=== PATIENT | male | born 1990 | race Caucasian/White ===

== ENCOUNTER 2020-09-12 16:12 | Inpatient (IN) | payer BC ==
[~2020-09-12] VITALS: Ht 172.7 cm; Wt 106.6 kg
[2020-09-12 16:35] LABS: ABSOLUTE NEUTROPHILS 11.2 thou/uL (1.4-8.2); BASOPHILS 0.9 % (0.0-2.0); EOSINOPHILS 0.8 % (0.0-3.0); HEMATOCRIT 44.9 % (42.0-52.0); HEMOGLOBIN 14.9 gm/dL (14.0-18.0); LYMPHOCYTES 9.6 % (24.0-44.0); MCH 28.1 pg (26.0-34.0); MCHC 33.3 g/dL (28.0-37.0); MCV 84.4 fL (80.0-100.0); MONOCYTES 5.1 % (1.0-8.0); PLATELET COUNT 269 thou/uL (150-400); POLYS 83.6 % (36.0-66.0); RBC 5.31 mil/uL (4.50-6.00); RDW 13.6 % (10.5-14.5); WBC 13.4 thou/uL (4.0-11.0)
[2020-09-12 16:43] LABS: ANION GAP 8 mmol/L (7-16); BUN 10 mg/dL (7-18); CALCIUM 8.9 mg/dL (8.5-10.1); CHLORIDE 100 mmol/L (98-107); CO2 28 mmol/L (21-32); CREATININE 1.4 mg/dL (0.7-1.3); GLUCOSE 121 mg/dL (74-106); POTASSIUM 3.9 mmol/L (3.5-5.1); SODIUM 136 mmol/L (136-145)
[2020-09-12 16:52] LABS: ALBUMIN 2.9 g/dL (3.4-5.0); SGOT 10 U/L (15-37); SGPT 12 U/L (30-65); TOTAL BILIRUBIN 0.8 mg/dL (0.2-1.0); TOTAL PROTEIN 7.4 g/dL (6.4-8.2); TROPONIN-I <0.06 ng/mL (<0.06)
[2020-09-12 17:27] LABS: URINE BILIRUBIN NEGATIVE (Negative); URINE BLOOD NEGATIVE (Negative); URINE CLARITY CLEAR; URINE COLOR YELLOW; URINE GLUCOSE-RANDOM* NEGATIVE (Negative); URINE KETONES NEGATIVE (Negative); URINE LEUKOCYTES-REFLEX NEGATIVE (Negative); URINE NITRITE-REFLEX NEGATIVE (Negative); URINE PROTEIN (DIPSTICK) NEGATIVE (Negative); URINE SPECIFIC GRAVITY <= 1.005 (1.005-1.035); URINE UROBILINOGEN 0.2 E.U./dl (0.2-1.0)
[2020-09-12 17:37] LABS: AMP/METHAMP Negative (Negative); BARBITURATES Negative (Negative); BENZODIAZEPINES Negative (Negative); COCAINE Negative (Negative); METHADONE Negative (Negative); OPIATES Negative (Negative); PCP Negative (Negative)
[2020-09-12 20:23] VITALS: BP 130/70
--- NOTE | 2020-09-12 20:24 | NUR ---
HAND OFF TOOL SENT
[2020-09-12 20:34] VITALS: BP 107/80
[2020-09-12 21:00] VITALS: BP 128/83
[2020-09-12 21:15] VITALS: BP 128/83
[2020-09-12 23:30] VITALS: BP 113/79
[2020-09-13] VITALS (10 sets, daily range): BP systolic 95–161; BP diastolic 55–95
--- NOTE | 2020-09-13 03:50 | NUR ---
PT ADMITTED TO ROOM 201 AROUND 2100, PT IS AWAKE, ALERT AND ORIENTEDX4, ADMISSION ASSESSMENT, EDUCATION AND HX COMPLETED, ST ON THE MONITOR, HR IN LOW 100, REMAINS ON CARDIZEM GTT, CARDIZEM GTT TITRATED TO 5ML/HR, HR AND BP REMAINS STABLE, ASSESSMENTS CHARTED, REMAINS NPO AFTER MIDNIGHT, DENIES PAIN OR SOB, NO NEEDS AT THIS TIME, WILL CONTINUE TO MONITOR AND FOLLOW POC
[2020-09-13 05:23] LABS: HEMATOCRIT 44.3 % (42.0-52.0); HEMOGLOBIN 14.7 gm/dL (14.0-18.0); MCH 28.7 pg (26.0-34.0); MCHC 33.1 g/dL (28.0-37.0); MCV 86.8 fL (80.0-100.0); RBC 5.11 mil/uL (4.50-6.00); RDW 13.7 % (10.5-14.5)
[2020-09-13 05:31] LABS: TROPONIN-I <0.06 ng/mL (<0.06)
[2020-09-13 05:35] LABS: CALCIUM 8.7 mg/dL (8.5-10.1); CREATININE 1.1 mg/dL (0.7-1.3); POTASSIUM 3.9 mmol/L (3.5-5.1); URIC ACID* 7.4 mg/dL (3.5-7.2)
--- NOTE | 2020-09-13 09:08 | EKG ---
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
[2020-09-13 11:07] LABS: IgA 310 mg/dL (90-386); IgG 1066 mg/dL (603-1613); IgM 72 mg/dL (20-172)
[2020-09-13 11:09] LABS: INR 1.2; PROTIME 12.6 Seconds (9.3-11.4)
--- NOTE | 2020-09-13 14:34 | NUR ---
Assess due to high nutrition screening risk. Admit with afib, lung mass, suspicious for lymphoma. S/P biopsy. Pt reports appetite down but just for few days. He verbalized he thought he weighed around 260 lb but states does not ever weigh himself. Current wt 231 lb. Has menu and able to order own food choices for a regular diet. Voiced no questions. Maintained on IVF for now. Low risk but continue to follow.
--- NOTE | 2020-09-13 18:24 | NUR ---
ASSUMED CARE SHIFT CHANGE. ASSESSSMENTS CHARTED.MEDS GIVEN. VSS. C/O PAIN IN CHEST MANAGED WITH PO AND IV PAIN MEDS. HR BETTER CONTROLLED, DILT GTT CONTINUES. CT SCAN COMPLETE, BIOPSY TAKEN-REFER TO RESULTS. FATHER AT BEDSIDE THROUGHOUT SHIFT. PT CURRENTLY SITTING UP IN BED DENYING NEEDS. CONTINUING POC. WILL PASS ON REPORT TO JIGAR RN.
[2020-09-14] VITALS (7 sets, daily range): BP systolic 89–138; BP diastolic 66–96
[2020-09-14 05:06] LABS: HEMATOCRIT 43.1 % (42.0-52.0); HEMOGLOBIN 14.3 gm/dL (14.0-18.0); MCH 28.2 pg (26.0-34.0); MCHC 33.2 g/dL (28.0-37.0); MCV 84.8 fL (80.0-100.0); RBC 5.08 mil/uL (4.50-6.00); RDW 13.7 % (10.5-14.5)
[2020-09-14 05:07] LABS: HAV IgM AB (ANTI-HAV IgM) Negative (Negative); HEPATITIS B SURFACE AG Negative (Negative); HEPATITIS C VIRUS AB <0.1 (0.0-0.9)
[2020-09-14 05:12] LABS: CALCIUM 8.3 mg/dL (8.5-10.1); POTASSIUM 4.2 mmol/L (3.5-5.1)
--- NOTE | 2020-09-14 07:12 | NUR ---
HR BACK TO AFIB AND CARDIZEM TITRATED UP TO 20MG/HR WITH SUSTAINED HR 130 TO 140 AND INCRAEASES TO 150'S WHEN UP TO BR, BP REMAINED STABLE, PRN PAIN MED GIVEN FOR NON CARDIAC CHEST PAIN AND KNEE PAIN, PHYSCICIAN NOTIFIED OF SUSTAIN ED HR INSTRUCTED TO CON'T TO MONITOR, AT 0410 BP DROPPED TO 89/66 AND HR 95 SINUS RHYTHM CARDIZEM HELD AND BP CHECKED AT 0430 @ 120/72 HR REMAINS SR - ST IN LOW 100'S, PT C/O NAUSEA THIS AM AND PRN ZOFRAN GIVEN STATES HE USUALLY TAKES TUMS AT HOME, WILL CON'T TO MONITOR PER PPOC.
--- NOTE | 2020-09-14 12:36 | 2DMMODE ---
[facility] [place] [address] 2 D/M-MODE ECHOCARDIOGRAM Name: STEFFANIE CORREA Room #: 201-P ADM IN M.R.#: [id number] Admission: 09/12/20 Attend Phys: Pako Guo MD Discharge: Date of : 89 Report #: [id number] THIS REPORT FOR: cc: FAM - No family physician/PCP FAM - No family physician/PCP Arturo Finley MD ~ APPROVED REPORT Study performed: 09/14/2020 08:39:51 EXAM: Comprehensive 2D, Doppler, and color-flow Echocardiogram Patient Location: Bedside Room #: 201 Status: on-call BSA: 2.17 HR: 110 bpm BP: 123/87 mmHg Rhythm: Tachycardia Other Information Study Quality: Poor/images on right side of chest/no apicals/limited exam. Indications Afib RVR, lung mass. Echo Enhancing Agent Indication: Rule out Shunt Agent(s) / Amount(s) Used: Agitated Saline 7 cc 2D Dimensions IVSd: 9.65 (7-11mm) LVOT Diam: 21.08 (18-24mm) LVDd: 38.44 mm PWd: 10.04 (7-11mm) LVDs: 25.07 (25-40mm) Aortic Root: 32.52 mm Aortic Valve AoV Peak Radhames.: 1.21 m/s AO Peak Gr.: 5.82 mmHg Pulmonary Valve PV Peak Radhames.: 1.22 m/s PV Peak Gr.: 5.99 mmHg [facility] [address] [address] 2 D/M-MODE ECHOCARDIOGRAM Name: STEFFANIE CORREA Room #: 201-P ADM IN M.R.#: [id number] Admission: 09/12/20 Attend Phys: Pako Guo MD Discharge: Date of : 89 Report #: [id number] Left Ventricle The left ventricle is normal size. There is normal LV segmental wall motion. There is normal left ventricular wall thickness. Left ventricular systolic function is normal. LVEF is 60-65%. Right Ventricle The right ventricle is normal size. The right ventricular systolic function is normal. Atria The left atrium size is normal. Suboptimal and undiagnostic bubble study for shunt. The right atrium size is normal. Aortic Valve The aortic valve is normal in structure. No aortic regurgitation is present. There is no aortic valvular stenosis. Mitral Valve The mitral valve is normal in structure. There is no mitral valve regurgitation noted. No evidence of mitral valve stenosis. Tricuspid Valve The tricuspid valve is normal in structure. There is no tricuspid valve regurgitation noted. Pulmonic Valve Pulmonic valve is not well visualized. Great Vessels The aortic root is normal in size. IVC is not well visualized. Pericardium Circumferential pericardial effusion without echocardiographic evidence of tamponade. Left and right pleural effusions noted. <Conclusion> The left ventricle is normal size. Left ventricular systolic function is normal. LVEF is 60-65%. The aortic valve is normal in structure. The aortic valve is normal in structure. The mitral valve is normal in structure. The tricuspid valve is normal in structure. Pulmonic valve is not well visualized. [facility] [address] [place] [address] 2 D/M-MODE ECHOCARDIOGRAM Name: STEFFANIE CORREA Room #: 201-P ADM IN M.R.#: [id number] Admission: 09/12/20 Attend Phys: Pako Guo MD Discharge: Date of : 89 Report #: [id number] The aortic root is normal in size. Circumferential pericardial effusion without echocardiographic evidence of tamponade. Left and right pleural effusions noted. <ELECTRONICALLY SIGNED> By: Arturo Finley MD 09/14/20 1236 1236 1236 Arturo Finley MD /INF
--- NOTE | 2020-09-14 18:12 | NUR ---
ASSESSMENT CHARTED. PT ALERT AND ORIENTED. PRN PAIN MED GIVEN WITH PARTIAL RELIEF. SR/ST ON TELE. NO CONCERNS AT THIS TIME.
--- NOTE | 2020-09-15 04:19 | NUR ---
PTS HR WENT BACK INTO AFIB RVR WITH RATE 140 TO 150 SUSTAINED VERAPIMILE GIVEN EARLY VSS, PRN PAIN MED GIVEN FOR BACK PAIN, HR CONVERTED BACK TO SINUS TACH AT 1045, PT RESTING QUIETLY IN ROOM UNTIL 0200 HE CALLED OUT THAT HE WAS NAUSEATED AND VOMITING, PRN ZOFRAN GIVEN AND NOW SLEEPING, WILL CON'T TO MONITOR PER PPOC.
[2020-09-15 04:43] VITALS: BP 129/74
[2020-09-15 07:46] VITALS: BP 124/82
[2020-09-15 11:31] VITALS: BP 121/70
[2020-09-15 16:52] VITALS: BP 108/74
--- NOTE | 2020-09-15 18:35 | NUR ---
RECEIVED PT'S CARE AROUND 0720; PT. RESTING WITH EYES CLOSED; EQUAL CHEST RISING NOTICED; ST ON THE MONITOR; DURING AM ASSESSMENT PT. AOX4; C/O BACK PAIN 09/04; REFUSED PRN PAIN MEDICATION; EDUCATED ABOUT PAIN MANAGEMENT; ST. UNDERSTANDING; PHYSICIAN AND PATTERNMAKER APPRENTICE WOOD NOTIFIED ABOUT ELEVATED HR DURING THE NIGHT; ORDERS ON PLACED; DURING THE EARLY AFTERNOON PT'S HR ELEVATED; 140-190s; AFIB; PT. RESTING ON SIDE OF THE BED; C/O SOB; "HOT FLUSHES"; PHYSICIAN NOTIFIED; ORDERS RECEIVED; REASSESSMENT PT. HR ON THE 110s; DURING THE EVENING HR BELOW 100s; MONITORING; SR; URINE SAMPLE SENT; ASSESSMENT CHARGED; FOLLOWING POC; WILL PASS ON REPORT;
[2020-09-15 19:43] VITALS: BP 113/68
[2020-09-16 03:33] VITALS: BP 103/53
[2020-09-16 03:45] LABS: HEMATOCRIT 40.8 % (42.0-52.0); HEMOGLOBIN 13.5 gm/dL (14.0-18.0); MCH 27.9 pg (26.0-34.0); MCHC 33.2 g/dL (28.0-37.0); RBC 4.85 mil/uL (4.50-6.00); RDW 13.5 % (10.5-14.5); WBC 14.9 thou/uL (4.0-11.0)
[2020-09-16 04:00] LABS: CALCIUM 8.7 mg/dL (8.5-10.1); CREATININE 0.9 mg/dL (0.7-1.3)
--- NOTE | 2020-09-16 06:37 | NUR ---
ASSUMED CARE AT CHANGE OF SHIFT, AWAKE, ALERT AND ORIENTED, DENIES PAIN OR SOB, SR ON TELE, NO AFIB NOTED TONIGHT, HR WELL CONTROLLED IN THE 80S AND 90S, ASSESSMENTS CHARTED, NO ACUTE DISTRESS NOTED, NO NEEDS AT THIS TIME, WILL PASS ON REPORT
[2020-09-16 07:21] VITALS: BP 107/61
[2020-09-16 07:30] VITALS: BP 101/61
[2020-09-16 09:06] LABS: ANA INTERPRETATION Negative (Negative)
[2020-09-16] MEDS ORDERED: IBUPROFEN 800800 M1 PO (09:57)
[2020-09-16] MEDS ORDERED: ALLOPURINOL 30300 M1 PO (09:57)
[2020-09-16] MEDS ORDERED: VERAPAMIL SR 1120 MG PO (09:57)
[2020-09-16] MEDS ORDERED: AUGMENTIN 875-1 EACH PO (11:02)
[2020-09-16 11:07] LABS: KAPPA FREE LIGHT CHAINS 21.3 mg/L (3.3-19.4); KAPPA/LAMBDA RATIO 1.01 (0.26-1.65); LAMBDA FREE LIGHT CHAINS 21.1 mg/L (5.7-26.3)
[2020-09-16 11:08] VITALS: BP 106/65
--- NOTE | 2020-09-16 11:44 | NUR ---
RECEIVED PT'S CARE AROUND 0720; PT. ON BED; ALERT; HR 150s; PT. ST. FEELING SOME PALPITATIONS; C/O BACK PAIN; 08/07; REFUSED PRN PAIN MEDICATION; AM MEDICATION GIVEN EARLIER; MONITORING; SR ON THE MONITOR LATER ON THE DAY; D/C ORDERS ON PLACED; NO ANTIBIOTICS RX; NOTICED ELEVATED WBC AND HX OF ELEVATED TEMPERATURE TWO NIGHTS AGO; DR. SIMEON NOTIFIED; ORDERS ON PLACED; RECEIVED CALL FROM VEGETABLES COOK PT MOTHER AT THE FRONT ENTRANCE; PT'S MOTHER REQUESTED TO SWITCH VISITOR TO MOTHER IN STEP OF FATHER; EXPLAINED PER POLICY SWITCHES ARE NOT ALLOW; NOTIFIED D/C ORDERS ON PLACED; EXPLAINED ABOUT D/C PROCESS; PT. NOTIFIED ABOUT MOTHER REQUESTED; PER PT. AWARE OF PER POLICY NOT ABLE TO CHANGE DESIGNATOR VISITOR; CENTER MEDICAL SPECIALIST [facility]. CONTRER[facility]; NOTIFIED ABOUT D/C PROCESS; STEsa CONTRERAS; SR ON THE MONITOR; ASSESSMENT CHARGED; FOLLOWING POC; WILL WORK ON D/C ORDERS;
[2020-09-16 11:54] VITALS: BP 106/65
[2020-09-16 15:07] LABS: GLOBULIN TOTAL 3.7 g/dL (2.2-3.9); M-SPIKE Not Observed g/dL (Not Observed)
--- NOTE | 2020-09-17 10:07 | PATH ---
[facility] [address] [place] [address] PATHOLOGY RPT PROCEDURE Name: STEFFANIE CORREA Room #: 201-P DIS IN M.R.#: [id number] Admission: 09/12/20 Date of : [birth year] Discharge: 09/16/20 Report #: [id number] Path Case #: [id number] [facility] Accession Number: [id number] . 01 Material submitted: . lung - LEFT LUNG MASS. Modifiers: left . 02 Diagnosis: Lung, left lung mass, needle core biopsy: - Moderate dense chronic inflammation along with scattered rare giant cells as well as hyalinized stroma. - Negative for malignancy. . (IUV:mml; 09/16/2020) QLM 09/16/2020 1104 Local . 02 Comment: Examination shows hyalinized fibrous needle core biopsy tissue of lung associated with dense chronic inflammation as well as an occasional giant cell. Well-developed granulomata are not identified. Properly-controlled immunohistochemical stains are performed on block A1 and included CD68 as well as AE1/AE3. There is no reactivity identified within AE1/AE3. Rare reactive cells are identified with CD68. In addition, properly controlled Acid fast bacillus and Gomori methenamine silver stains performed on A1 are negative for mycobacterial as well as fungal elements, respectively. . (IUV:mml; 09/16/2020) . 02 Electronically signed: . Tracy Wilkerson MD, Pathologist NPI- [id number] . 01 Gross description: . The specimen is received in formalin, labeled "Steffanie Correa, left lung biopsy". Received are three needle cores of pale ford tissue ranging in length from 0.7-1.2 cm in length, with each measuring 0.1 cm in diameter. The specimen is submitted entirely in cassettes A1 through A3. A portion of the specimen is received in RPMI solution and is forwarded to an outside laboratory for flow cytometry studies. (CAA; 09/13/2020) QAC/QAC 09/13/2020 1554 Local . 02 Pathologist provided ICD-10: J98.4 . 02 CPT . 927891, Z31723, Y90110, 164404, [id number] [place] [address] PATHOLOGY RPT PROCEDURE Name: STEFFANIE CORREA Room #: 201-P DIS IN M.R.#: [id number] Admission: 09/12/20 Date of : [birth year] Discharge: 09/16/20 Report #: [id number] Path Case #: [id number] Specimen Comment: A courtesy copy of this report has been sent to [phone] Specimen Comment: Report sent to Performed at: [address], [place] [id number] MD Butch Bruno MD Phone: [phone] Performed at: [address] [id number] MD Tracy Wilkerson MD Phone: [phone]
== END 2020-09-16 13:16 | disposition home or self-care (01) | DRG 309 ==
LOC: ER 16:12 → 2N 19:28 → EROBS 19:28 → 2N 20:44
PROVIDERS: Internal Medicine Hematology & Oncology; Internal Medicine Pulmonary Disease; Nurse Practitioner Acute Care; Physician Assistant; Radiology Diagnostic Radiology; ADMIT Hospitalist; ATTEND Hospitalist
PROC: 0B9L3ZX Drainage of Left Lung, Percutaneous Approach, Diagnostic (ICD-10-PCS; principal; 2020-09-13)
DX: I48.20 Chronic atrial fibrillation, unspecified (principal); N17.9 Acute kidney failure, unspecified; C85.90 Non-Hodgkin lymphoma, unspecified, unspecified site; J90 Pleural effusion, not elsewhere classified; R91.8 Other nonspecific abnormal finding of lung field; R93.89 Abnormal findings on diagnostic imaging of other specified body structures; D72.829 Elevated white blood cell count, unspecified; I48.0 Paroxysmal atrial fibrillation; Z85.46 Personal history of malignant neoplasm of prostate; Z72.89 Other problems related to lifestyle
CPT/HCPCS: 10081

== ENCOUNTER → 2020-09-25 | Outpatient (CLI) | payer BC ==
[~2020-09-25] MED LIST: ALLOPURINOL 30300 M1 PO; AUGMENTIN 875-1 EACH PO; IBUPROFEN 800800 M1 PO; VERAPAMIL HCL120 MG PO; VERAPAMIL SR 1120 MG PO
--- NOTE | 2020-09-30 15:07 | PATH ---
[facility] [address] [place] [address] PATHOLOGY RPT PROCEDURE Name: STEFFANIE CORREA Room #: REG VIVIANA Carl.#: [id number] Admission: 09/25/20 Date of : [birth year] Discharge: Report #: [id number] Path Case #: [id number] Note [facility] Accession Number: [id number] TESTS RESULT FLAG UNITS REF RANGE LAB Clinician Provided Cytology Information No. of containers..01 Other (Miscellaneous) Source: LMS FNA DIAGNOSIS: LMS FNA NEGATIVE FOR MALIGNANT EPITHELIAL CELLS. REACTIVE BRONCHIAL CELLS ARE PRESENT. RED BLOOD CELLS ARE PRESENT. THIS INTERPRETATION INCLUDES EVALUATION OF A CELL BLOCK. Pathologist ICD10: 02 R91.8 Signed out by: 02 Tracy Wilkerson MD, Pathologist NPI- [id number] Performed by: Dionicio Raman, Donor Center Technician ([facility]) Gross description: 01 20ML, RED, 2FX /LCS 09/27/2020 0700 Local FLAG LEGEND: L-Low Normal,H-High Normal,LL-Alert Low,HH-Alert High <-Panic Low,>-Panic High,A-Abnormal,AA-Critical Abnormal Performed at: [address] [place] [address] Butch Bruno MD, [address] [address] Tracy Wilkerson MD, Specimen Comment: A courtesy copy of this report has been sent to [phone] Specimen Comment: Report sent to Specimen Comment: A duplicate report has been generated due to demographic updates. Performed at: [address], [place], [place] [id number] MD Butch Bruno MD Phone: [phone]
== END ==
LOC: LAB 13:41
PROVIDERS: ATTEND Pediatrics
DX: Z20.822 Contact with and (suspected) exposure to COVID-19 (principal)

== ENCOUNTER → 2020-09-26 | Outpatient (CLI) | payer BC ==
[~2020-09-26] VITALS: Ht 172.7 cm; Wt 100.2 kg
[2020-09-26 10:00] VITALS: BP 114/78
== END | disposition home or self-care (01) ==
LOC: OR 08:47
PROVIDERS: ATTEND Pediatrics
DX: R91.8 Other nonspecific abnormal finding of lung field (principal); I48.91 Unspecified atrial fibrillation; K21.9 Gastro-esophageal reflux disease without esophagitis; Z98.890 Other specified postprocedural states; Z79.899 Other long term (current) drug therapy; Z79.01 Long term (current) use of anticoagulants
CPT/HCPCS: 62110; 62900; 70005

== ENCOUNTER 2020-10-12 18:33 | Inpatient (IN) | payer BC ==
[~2020-10-12] VITALS: Ht 172.7 cm; Wt 95.3 kg
[2020-10-12 18:36] VITALS: BP 151/76
[2020-10-12 18:48] LABS: HEMATOCRIT 45.3 % (42.0-52.0); HEMOGLOBIN 15.3 gm/dL (14.0-18.0); MCH 28.3 pg (26.0-34.0); MCHC 33.9 g/dL (28.0-37.0); MCV 83.6 fL (80.0-100.0); PLATELET COUNT 413 thou/uL (150-400); RBC 5.42 mil/uL (4.50-6.00); RDW 14.9 % (10.5-14.5); WBC 20.5 thou/uL (4.0-11.0)
[2020-10-12 18:58] LABS: CALCIUM 9.3 mg/dL (8.5-10.1); CREATININE 1.4 mg/dL (0.7-1.3); POTASSIUM 3.9 mmol/L (3.5-5.1)
[2020-10-12 19:03] LABS: ALBUMIN 3.1 g/dL (3.4-5.0); DIRECT BILIRUBIN 0.2 mg/dL (<0.1-0.2); TOTAL BILIRUBIN 0.7 mg/dL (0.2-1.0); TOTAL PROTEIN 7.9 g/dL (6.4-8.2)
[2020-10-12 19:04] LABS: APTT 28.3 Seconds (24.5-32.8); INR 1.2
[2020-10-12 19:23] LABS: ABSOLUTE NEUTROPHILS 15.4 thou/uL (1.4-8.2)
[2020-10-12 21:06] VITALS: BP 118/79
[2020-10-12 21:38] VITALS: BP 110/74
[2020-10-12 22:00] VITALS: BP 119/86
[2020-10-12 22:20] VITALS: BP 114/78
[2020-10-12 23:30] VITALS: BP 103/56
[2020-10-13] VITALS (13 sets, daily range): BP systolic 98–125; BP diastolic 44–80
[2020-10-13 05:09] LABS: ABSOLUTE NEUTROPHILS 9.1 thou/uL (1.4-8.2); BASOPHILS 0.5 % (0.0-2.0); EOSINOPHILS 2.5 % (0.0-3.0); HEMATOCRIT 41.5 % (42.0-52.0); HEMOGLOBIN 13.9 gm/dL (14.0-18.0); LYMPHOCYTES 16.1 % (24.0-44.0); MCH 28.6 pg (26.0-34.0); MCHC 33.5 g/dL (28.0-37.0); MCV 85.4 fL (80.0-100.0); MONOCYTES 5.8 % (1.0-8.0); PLATELET COUNT 291 thou/uL (150-400); POLYS 75.1 % (36.0-66.0); RBC 4.87 mil/uL (4.50-6.00); WBC 12.2 thou/uL (4.0-11.0)
[2020-10-13 05:19] LABS: ALBUMIN 2.2 g/dL (3.4-5.0); CALCIUM 8.4 mg/dL (8.5-10.1); TOTAL BILIRUBIN 0.6 mg/dL (0.2-1.0); TOTAL PROTEIN 6.2 g/dL (6.4-8.2)
[2020-10-14] VITALS (29 sets, daily range): BP systolic 99–123; BP diastolic 56–80
--- NOTE | 2020-10-14 09:21 | HC ---
[facility] [place] [address] CONSULTATION Name: STEFFANIE CORREA Room #: 200-I ADM IN M.R.#: [id number] Admission: 10/12/20 Attend Phys: Caryn Johnson Discharge: Date of : 89 Report #: [id number] THIS REPORT FOR: cc: SAW - Fidelina family physician/PCP SAW - No family physician/PCP Alex Peace MD ~ DATE OF SERVICE: 10/13/2020 CARDIOLOGY CONSULTATION INDICATION: Palpitations. HISTORY OF PRESENT ILLNESS: This is a 30-year-old gentleman with a recent history of left lung mass and atrial fibrillation, presenting with recurrent palpitations. He was recently hospitalized for palpitations, diagnosed with atrial fibrillation. His rhythm remained stable on verapamil. In regards to his left lung mass, he did undergo two biopsies, no definitive diagnosis. He is scheduled to have a PET scan and followup with CT surgery. The patient woke up with sudden onset of palpitations, which increased in the rate. He came to the ER, diagnosed with an SVT at 212 beats per minute, converted with IV adenosine. On telemetry, he did have recurrent episodes of atrial fibrillation, converted back to sinus rhythm. The patient denies any recent fever, chills, nausea, or diarrhea. Over the past several months, he has had increased dyspnea with walking attributed to his left lung mass. PAST MEDICAL HISTORY: Atrial fibrillation, diagnosed in 08/2020, echo revealed normal LV systolic function. Left lung mass, currently undergoing evaluation. ALLERGIES: None. MEDICATIONS: At home include verapamil 120 mg b.i.d. SOCIAL HISTORY: Denies tobacco use. FAMILY HISTORY: Negative for premature CAD. REVIEW OF SYSTEMS: A full 10-point review of systems performed. Only the pertinent positives and negatives are described in the HPI. PHYSICAL EXAMINATION: VITAL SIGNS: Blood pressure is 118/70, heart rate is 90 beats per minute. GENERAL APPEARANCE: This is a well-developed, well-nourished male in no acute distress. HEENT: Normocephalic, atraumatic. NECK: Supple. [facility] [address] [place] [address] CONSULTATION Name: STEFFANIE CORREA Room #: 200-I ADM IN .R.#: [id number] Admission: 10/12/20 Attend Phys: Caryn Johnson Discharge: Date of : [birth year] Report #: [id number] LUNGS: Diminished breath sounds at the left side. CARDIAC: Regular rate and rhythm, S1, S2 positive. ABDOMEN: Soft, nontender. EXTREMITIES: No edema, no cyanosis. ECG #1 reveals SVT at 212 beats per minute. ECG #2 reveals sinus tachycardia. LABORATORY VALUES: White count is 12.2, hemoglobin is 13.9, creatinine is 1.0. ASSESSMENT AND PLAN: 1. Supraventricular tachycardia, converted with IV adenosine. Had been on verapamil, consider switching over to a beta soham. 2. Paroxysmal atrial fibrillation, remains in sinus rhythm at this time. Consider adding an antiarrhythmic. On his previous admission when he was diagnosed with atrial fibrillation, anticoagulation was not started due to low risk profile and ongoing evaluation for his left lung mass. Start aspirin therapy. 3. Left lung mass, continue evaluation for diagnosis. <ELECTRONICALLY SIGNED> By: Alex Peace MD 10/14/20 0921 1104 1841 Alex Peace MD /nt
--- NOTE | 2020-10-14 09:29 | EKG ---
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 MCARTHUR : 1990 Requested By: Yuridia Pinto Order Number: [id number] MD: Stan Singletary Measurements Intervals [place] Rate: 213 P: 0 MA: 106 QRS: 40 QRSD: 80 T: 30 QT: 237 QTc: 446 Interpretive Statements Supraventricular tachycardia RSR' in V1 or V2, probably normal variant Compared to ECG 09/12/2020 17:16:54 PSVT has replaced atrial fibrillation Electronically Signed On 10-14-2020 9:28:49 CDT by Stan Singletary [email or web address] <ELECTRONICALLY SIGNED> By: Stan Singletary MD, [facility] 10/14/20 0928 41 41 Stan Singletary MD, [facility] /EPI
--- NOTE | 2020-10-14 09:32 | 2DMMODE ---
[address] [address] 2 D/M-MODE ECHOCARDIOGRAM Name: STEFFANIE CORREA Room #: 200-I ADM IN M.R.#: [id number] Admission: 10/12/20 Attend Phys: Caryn Aguilar [place] Discharge: Date of : [birth year] Report #: [id number] THIS REPORT FOR: cc: FAM - No family physician/PCP FAM - No family physician/PCP Alex Peace MD ~ APPROVED REPORT Study performed: 10/14/2020 07:41:11 EXAM: Comprehensive 2D, Doppler, and color-flow Echocardiogram Patient Location: Bedside Room #: 200 Status: routine BSA: 2.13 HR: 90 bpm BP: 117/75 mmHg Rhythm: Tachycardia Other Information Study Quality: Technically Limited Technically limited study due to Limithed imaging windows. Indications Atrial Fibrillation Pericardial Effusion Left Ventricle The left ventricle is normal size. There is normal LV segmental wall motion. There is normal left ventricular wall thickness. The left ventricular systolic function is normal. The left ventricular ejection fraction is within the normal range. LVEF is 55-60%. This study is not technically sufficient to allow evaluation of the LV diastolic function. Right Ventricle The right ventricle is normal size. The right ventricular systolic function is normal. Atria The left atrium size is normal. The right atrium size is normal. [address] [address] 2 D/M-MODE ECHOCARDIOGRAM Name: STEFFANIE CORREA Room #: 200-I ADM IN M.R.#: [id number] Admission: 10/12/20 Attend Phys: Caryn Baez Discharge: Date of : [birth year] Report #: [id number] Aortic Valve The aortic valve is normal in structure. No aortic regurgitation is present. Mitral Valve The mitral valve is normal in structure. There is no mitral valve regurgitation noted. Tricuspid Valve The tricuspid valve is normal in structure. There is no tricuspid valve regurgitation noted. Pulmonic Valve Pulmonic valve is not well visualized. Great Vessels The aortic root is normal in size. The inferior vena cava is not well visualized. Pericardium Small pericardial effusion. <Conclusion> The left ventricle is normal size. There is normal left ventricular wall thickness. The left ventricular systolic function is normal. The right ventricle is normal size. The left atrium size is normal. The aortic valve is normal in structure. There is no mitral valve regurgitation noted. Small pericardial effusion. <ELECTRONICALLY SIGNED> By: Alex Peace MD 10/14/20930 0 0 Alex Peace MD /INF
[2020-10-15] VITALS (35 sets, daily range): BP systolic 94–124; BP diastolic 48–78
[2020-10-15 05:02] LABS: HEMATOCRIT 37.7 % (42.0-52.0); HEMOGLOBIN 12.6 gm/dL (14.0-18.0); MCHC 33.5 g/dL (28.0-37.0); MCV 83.7 fL (80.0-100.0); RBC 4.51 mil/uL (4.50-6.00); RDW 14.7 % (10.5-14.5); WBC 14.2 thou/uL (4.0-11.0)
[2020-10-15 05:39] LABS: CALCIUM 8.8 mg/dL (8.5-10.1); CREATININE 0.8 mg/dL (0.7-1.3); POTASSIUM 4.7 mmol/L (3.5-5.1)
--- NOTE | 2020-10-15 09:19 | EKG ---
[address] [place] [address] ELECTROCARDIOGRAM REPORT Name: SUNNYSTEFFANIESEBASTIAN BAIRD Room #: 249-P ADM IN M.R.#: [id number] Admission: 10/12/20 Attend Phys: Caryn Johnson Discharge: Date of : 89 Report #: [id number] 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: JCHAIREZ : 1990 Requested By: Caryn Johnson Order Number: [id number] MD: Stan Singletary Measurements Intervals [place] Rate: 108 P: 44 MI: 143 QRS: 35 QRSD: 87 T: 55 QT: 294 QTc: 394 Interpretive Statements Sinus tachycardia Otherwise normal tracing Compared to ECG 10/12/2020 18:42:10 Supraventricular tachycardia no longer present Electronically Signed On 10-15-2020 9:19:16 CDT by Stan Singletary [email or web address] <ELECTRONICALLY SIGNED> By: Stan Singletary MD, [facility] 10/15/20 0919 1857 56 Stan Singletary MD, FACC /EPI
--- NOTE | 2020-10-15 17:07 | PATH ---
[facility] [address] [place] [address] PATHOLOGY RPT PROCEDURE Name: STEFFANIE CORREA Room #: 249-P ADM IN M.R.#: [id number] Admission: 10/12/20 Date of : 89 Discharge: Report #: [id number] Path Case #: [id number] Note [facility] Accession Number: [id number] TESTS RESULT FLAG UNITS REF RANGE LAB Clinician Provided Cytology Information No. of containers..01 Other (Miscellaneous) Source: LEFT PLEURAL FLUID DIAGNOSIS: LEFT PLEURAL FLUID NEGATIVE FOR MALIGNANT EPITHELIAL CELLS. REACTIVE MESOTHELIAL CELLS ARE PRESENT. THIS INTERPRETATION INCLUDES EVALUATION OF A CELL BLOCK. SCANT CELLULARITY. RARE INFLAMMATORY CELLS AND MACROPHAGES. Pathologist ICD10: 02 J90 Signed out by: 02 Tracy Wilkerson MD, Pathologist NPI- [id number] Performed by: Dionicio Raman, Tablet Repair ([facility]) Gross description: 01 30ML, OXANA, 1TP 1CB /LCS 10/15/2020 0228 Local FLAG LEGEND: L-Low Normal,H-High Normal,LL-Alert Low,HH-Alert High <-Panic Low,>-Panic High,A-Abnormal,AA-Critical Abnormal Performed at: [address] [place] [address] Butch Bruno MD, [address] [address] Tracy Wilkerson MD, Performed at: [address], [place], [place] [id number] MD Butch Bruno MD Phone: [phone]
[2020-10-16] VITALS: BP 107/62
[2020-10-16 04:00] VITALS: BP 103/58
[2020-10-16 08:00] VITALS: BP 100/65
[2020-10-16 11:38] VITALS: BP 99/69
[2020-10-16 16:59] VITALS: BP 103/63
[2020-10-17] VITALS (7 sets, daily range): BP systolic 106–134; BP diastolic 61–90
[2020-10-17 05:30] LABS: HEMATOCRIT 35.9 % (42.0-52.0); HEMOGLOBIN 12.1 gm/dL (14.0-18.0); MCH 28.4 pg (26.0-34.0); MCHC 33.7 g/dL (28.0-37.0); MCV 84.4 fL (80.0-100.0); RBC 4.25 mil/uL (4.50-6.00); WBC 8.1 thou/uL (4.0-11.0)
[2020-10-17 05:34] LABS: CALCIUM 8.1 mg/dL (8.5-10.1); CREATININE 0.9 mg/dL (0.7-1.3); POTASSIUM 3.9 mmol/L (3.5-5.1)
[2020-10-18 03:16] LABS: HEMATOCRIT 39.5 % (42.0-52.0); HEMOGLOBIN 13.3 gm/dL (14.0-18.0); MCH 28.1 pg (26.0-34.0); MCHC 33.6 g/dL (28.0-37.0); MCV 83.8 fL (80.0-100.0); RBC 4.72 mil/uL (4.50-6.00); WBC 7.5 thou/uL (4.0-11.0)
[2020-10-18 03:23] LABS: CALCIUM 8.5 mg/dL (8.5-10.1); CREATININE 0.7 mg/dL (0.7-1.3); POTASSIUM 3.7 mmol/L (3.5-5.1)
[2020-10-18 03:51] VITALS: BP 128/80
[2020-10-18 08:10] VITALS: BP 126/86
[2020-10-18 11:54] VITALS: BP 135/79
[2020-10-18] MEDS ORDERED: METOPROLOL SUCC25 M1 PO (12:49)
[2020-10-18] MEDS ORDERED: BAYER CHEWABLE81 MG PO (12:49)
--- NOTE | 2020-10-18 12:59 | O ---
[facility] [place] [address] OPERATIVE REPORT Name: SUNNYSTEFFANIE BAIRD Room #: 204-P ADM IN M.R.#: [id number] Admission: 10/12/20 Attend Phys: Caryn Jeff Johnson Discharge: Date of : 89 Report #: [id number] THIS REPORT FOR: cc: SAW - No family physician/PCP FAM - No family physician/PCP Shamir Painting MD ~ DATE OF SERVICE: 10/14/2020 PREOPERATIVE DIAGNOSIS: Left chest mass. POSTOPERATIVE DIAGNOSIS: Left chest mass. OPERATION: Bronchoscopy, left anterior mediastinotomy (Lynch procedure) with chest tube placement. SURGEON: Shamir Painting MD TUBER MACHINE OPERATOR: FARA Bassett. ANESTHESIA: General. INDICATIONS: The patient is a 30-year-old with a large left chest mass. This has been biopsied with a transthoracic needle and bronchoscopically and no diagnosis exists. The patient was admitted with arrhythmias and, once stabilized, the patient was seen regarding obtaining a more definitive tissue diagnosis. FINDINGS AND TECHNIQUE: After general anesthesia was established, flexible diagnostic bronchoscopy was performed. The trachea and right-sided bronchi were normal. The left mainstem bronchus was normal, but there was apparent extrinsic compression of the left upper and left lower lobar bronchi with inspissated secretions. A double lumen endotracheal tube was placed and the patient was positioned for our anterior mediastinotomy. An incision was made in the left anterior chest and the chest was entered through the second interspace. A large left internal mammary lymph node was identified as anticipated from the CT scan and generous biopsies of this were taken and submitted for frozen section and permanent pathology. Pathology (Dr. Wilkerson) indicated that she seemed to have diagnostic material. It should also be mentioned that when the chest was entered, approximately 3 liters of straw-colored fluid was obtained. A sample of this was sent for cytology. [facility] [address] [place] [address] OPERATIVE REPORT Name: STEFFANIE CORREA Room #: 204-P [facility] IN M.R.#: [id number] Admission: 10/12/20 Attend Phys: Caryn Johnson Discharge: Date of : 89 Report #: [id number] Because of the large amount of pleural fluid, a chest tube was placed through a separate stab wound and hemostasis was ascertained and the chest was closed in layers. The patient was taken to the recovery area in good condition having tolerated the procedure well. Chest x-ray was taken in lieu of full counts. The patient tolerated the procedure well. <ELECTRONICALLY SIGNED> By: Shamir Painting MD 10/18/20 [id number] Shamir Painting MD /nt
[2020-10-18 13:20] VITALS: BP 135/79
== END 2020-10-18 16:05 | disposition home or self-care (01) | DRG 264 ==
LOC: ER 18:33 → ICU 20:13 → EROBS 20:13 → 2N 22:06 → TBA 10-14 14:00 → ICU 10-14 16:49 → 2N 10-17 12:23
PROVIDERS: Emergency Medicine; Hospitalist; Physician Assistant; Surgery Vascular Surgery; ADMIT Hospitalist; ATTEND Hospitalist
PROC: 07B90ZX Excision of Left Internal Mammary Lymphatic, Open Approach, Diagnostic (ICD-10-PCS; principal; 2020-10-14)
PROC: 0BJ08ZZ Inspection of Tracheobronchial Tree, Via Natural or Artificial Opening Endoscopic (ICD-10-PCS; principal; 2020-10-14)
PROC: 0W9B30Z Drainage of Left Pleural Cavity with Drainage Device, Percutaneous Approach (ICD-10-PCS; 2020-10-14)
DX: I47.1 Supraventricular tachycardia (principal); N17.0 Acute kidney failure with tubular necrosis; E43 Unspecified severe protein-calorie malnutrition; J98.59 Other diseases of mediastinum, not elsewhere classified; C85.90 Non-Hodgkin lymphoma, unspecified, unspecified site; J91.8 Pleural effusion in other conditions classified elsewhere; R91.8 Other nonspecific abnormal finding of lung field; K21.9 Gastro-esophageal reflux disease without esophagitis; I48.0 Paroxysmal atrial fibrillation; J98.9 Respiratory disorder, unspecified; E66.9 Obesity, unspecified; Z20.822 Contact with and (suspected) exposure to COVID-19; Z68.32 Body mass index [BMI] 32.0-32.9, adult; Z79.899 Other long term (current) drug therapy
CPT/HCPCS: 10078; 10081; 10203; 50010; 50101; 50386; 50417; 50455; 51301; 54118; 56524; 56525; 56526; 56527; 56528; 62110; 62900; 65105; 65129; 70005